=== PATIENT | female | born 1990 | race Caucasian/White ===

== ENCOUNTER 2022-02-11 13:40 | Emergency (ER) | payer OTHER ==
[2022-02-11] MEDS ORDERED: Metoclopramide 10 MG/2 ML SDV IVPUSH ONE (14:49)
[2022-02-11] MEDS ORDERED: HYDROmorphone 0.5 MG/0.5 ML Syringe IVPUSH ONE (14:49)
[2022-02-11] MEDS ORDERED: LORazepam 2 MG/ML SDV IV ONE (14:49)
[2022-02-11] MEDS ORDERED: Pantoprazole 40 MG Vial IVPUSH ONE (14:52)
[2022-02-11] MEDS ORDERED: Ketorolac 30 MG/ML SDV IVPUSH SCH (15:00)
[2022-02-11] MEDS ORDERED: Acetaminophen 325 MG Tab PO ONE (15:00)
[2022-02-11] MEDS ORDERED: Dextrose 5%-0.9% NaCl 1,000 ML IV SCH (15:00)
[2022-02-11 15:59] LABS: ESTIMATED GFR > 60 mL/min (>60)
[2022-02-11] MEDS ORDERED: Sodium Chloride 0.9% 1,000 ML IV SCH (16:30)
[2022-02-11 17:55] LABS: CORONAVIRUS COVID-19 NAA POSITIVE (NEGATIVE)
== END 2022-02-11 18:20 | disposition home or self-care (01) ==
LOC: JD.ED 13:40
DX: U07.1 COVID-19 (principal)
CPT/HCPCS: 0240U; 36415; 71045; 80053; 81001; 83735; 84484; 85025; 85379; 86140; 87040; 96361; 96374; 96375; 99285; A9270; C9113; J1170; J1885; J2060; J2765; J7042; 99284